=== PATIENT | male | born 1945 | race Caucasian/White ===

== ENCOUNTER 2022-05-11 15:22 | Emergency (ER) | payer MEDICARE, BC ==
[2022-05-11] MEDS ORDERED: Morphine 2 MG/ML SYRINGE IM ONE ×2 (15:57→16:53)
[2022-05-11 16:32] VITALS: BP 114/61; PULSE 120
== END 2022-05-11 17:42 | disposition home or self-care (01) ==
LOC: LL.ED 15:22
DX: G89.3 Neoplasm related pain (acute) (chronic) (principal); M84.58XG Pathological fracture in neoplastic disease, other specified site, subsequent encounter for fracture with delayed healing; F17.210 Nicotine dependence, cigarettes, uncomplicated
CPT/HCPCS: 96372; 99283; 99284; J2270

== ENCOUNTER 2022-05-20 20:54 | Observation (INO) | payer MEDICARE, BC ==
[2022-05-20] MEDS ORDERED: Ondansetron 4 MG/2 ML SDV IVPUSH PRN (22:13)
[2022-05-20 23:02] LABS: ANION GAP 14.4 meq/L (7-15); CHLORIDE,CL 104 mmol/L (98-107); SODIUM,NA 143 mmol/L (136-145)
[2022-05-20 23:04] LABS: ESTIMATED GFR 54 mL/min (>=60)
[2022-05-21] MEDS: Atropine 1% Ophth Soln 5 ML BOTTLE SL SCH ×10 (00:21→16:40)
[2022-05-21] MEDS: Morphine 2 MG/ML SYRINGE IVPUSH PRN ×3 (02:43→14:14)
[2022-05-21] MEDS: Sodium Chloride 0.9% 10 ML Syringe FLUSH PRN ×2 (07:57→14:13)
[2022-05-21 12:22] VITALS: BP 111/68; PULSE 125
[2022-05-21] MEDS ORDERED: Saliva Substitute Oral Spray 120 ML Bottle MUCMEM PRN (13:57)
[2022-05-21] MEDS ORDERED: Hyoscyamine 0.125 MG Tab.SL SL ONE (15:30)
== END 2022-05-21 18:50 | disposition expired ==
LOC: LL.ED 20:54 → UNDOADMOB 21:45 → LL.MS 21:45
PROVIDERS: ADMIT Emergency Medicine; ATTEND Emergency Medicine
DX: G89.3 Neoplasm related pain (acute) (chronic) (principal); Z79.899 Other long term (current) drug therapy; C34.91 Malignant neoplasm of unspecified part of right bronchus or lung
CPT/HCPCS: 36415; 71045; 80053; 85025; 96374; 96376; 99217; 99220; 99285; A9270-GY; G0378; J2270; J3490